=== PATIENT | male | born 1970 | race Caucasian/White ===

== ENCOUNTER → 2017-02-06 | Outpatient (CLI) | payer OTHER | LOC: KOH-I 15:00 | DX: J40 Bronchitis, not specified as acute or chronic (principal) | CPT/HCPCS: 71020 ==

== ENCOUNTER → 2022-06-13 | Outpatient (CLI) | payer BC | LOC: KOH-I 06-06 11:00 | DX: N28.1 Cyst of kidney, acquired (principal); M54.9 Dorsalgia, unspecified; N28.89 Other specified disorders of kidney and ureter; I10 Essential (primary) hypertension; M54.16 Radiculopathy, lumbar region | CPT/HCPCS: 74176 ==